=== PATIENT | male | born 1990 | race Caucasian/White ===

== ENCOUNTER 2016-09-05 10:26 | Emergency (ER) ==
[2016-09-05 10:38] VITALS: BP 160/90; TEMP 97.5; BMI 25.0
--- NOTE | 2016-09-05 10:52 | ED.PDOC ---
General ED Provider: Dr. ALEXANDER FRANCISCO Chief Complaint: Rash Stated Complaint: HAS SOME SPOTS ON THE PENIS, WANTS TO GET CHECKED. Time Seen by Physician: 10:50 Mode of Arrival: Walk-In Information Source: Patient Nursing and Triage Documentation Reviewed and Agree: Yes Complaint Exam - STD Male Complaint/Exam Symptoms Are: Still present Timing: Constant Initial Severity: Mild Current Severity: Mild Location: Reports: Penis Aggravating: Reports: None Alleviating: Reports: None Associated Signs and Symptoms: Reports: Penile sores. Denies: Dysuria, Scrotal pain, Scrotal swelling, Testicular pain, Testicular swelling Related Surgical History: Reports: None Genitalia Exam: Present: Penile lesions, Penile vesicles Differential Diagnoses: Herpes Simplex Review of Systems - Review Of Systems Constitutional: Reports: No symptoms Eyes: Reports: No symptoms Ears, Nose, Mouth, Throat: Reports: No symptoms Respiratory: Reports: No symptoms Cardiac: Reports: No symptoms GI: Reports: No symptoms : Reports: No symptoms Musculoskeletal: Reports: No symptoms Skin: Reports: No symptoms Neurological: Reports: No symptoms Endocrine: Reports: No symptoms Hematologic/Lymphatic: Reports: No symptoms All Other Systems: Reviewed and Negative Past Medical History - Past Medical History Previously Healthy: Yes Endocrine: Reports: None Cardiovascular: Reports: None Respiratory: Reports: None Hematological: Reports: None Gastrointestinal: Reports: None Genitourinary: Reports: None Neuro/Psych: Reports: None Musculoskeletal: Reports: None Cancer: Reports: None - Surgical History General Surgical History: Reports: None - Family History Family History: Reports: None - Social History Smoking Status: Never smoker Hx Substance Use: Yes ([facility]) Alcohol Screening: None Physical Exam - Physical Exam Appearance: Well-appearing, No pain distress, Well-nourished Eyes: ENRRIQUE, EOMI, Conjunctiva clear ENT: Ears normal, Nose normal, Oropharynx normal Respiratory: Airway patent, Breath sounds clear, Breath sounds equal, Respirations nonlabored Cardiovascular: RRR, Pulses normal, No rub, No murmur GI/: Soft (2 SPOTS ON THE PENIS, LOOK LIKE HEALING BLISTERS???), Nontender, No masses, Bowel sounds normal, No Organomegaly Musculoskeletal: Normal strength, ROM intact, No edema, No calf tenderness Skin: Warm, Dry, Normal color Neurological: Sensation intact, Motor intact, Reflexes intact, Cranial nerves intact, Alert, Oriented Psychiatric: Affect appropriate, Mood appropriate Critical Care Note - Critical Care Note Total Time (mins): 0 Course - Course Vital Signs: Temp Pulse Resp BP Pulse Ox 09/05/16 10:27 97.5 F L 53 L 16 160/90 H 98 Departure - Departure Time of Disposition: 10:54 Disposition: HOME SELF-CARE 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
== END 2016-09-05 11:01 | disposition home or self-care (01) ==
LOC: ED 10:26
DX: A60.01 Herpesviral infection of penis (principal)
CPT/HCPCS: 99282

== ENCOUNTER 2016-09-23 15:22 | Outpatient (CLI) ==
[2016-09-23 15:41] LABS: BILIRUBIN,URINE Negative (NEGATIVE); KETONES,URINE Negative (NEGATIVE); LEUKOCYTE ESTERASE ,URINE Negative (NEGATIVE); NITRITE,URINE Negative (NEGATIVE); PH,URINE 6.5 (5-9); PROTEIN,URINE Negative (NEGATIVE); URINE, BLOOD Trace-intact (NEGATIVE)
[2016-09-23 15:48] LABS: ADD URINE MICROSCOPIC YES
[2016-09-23 16:13] LABS: HIV INTERNAL QC INTERNAL QC VALID; HIV-1 p24 ANTIGEN SCREEN NEGATIVE (NEGATIVE); HIV-1/2 ANTIBODY SCREEN NEGATIVE (NEGATIVE)
[2016-09-27 07:54] LABS: HIV ANTIBODIES QUALITATIVE NONREACTIVE (Nonreactive); RAPID PLASMA REAGIN NONREACTIVE
== END 2016-09-23 15:23 | disposition home or self-care (01) ==
LOC: LAB 15:22
PROVIDERS: ATTEND Nurse Practitioner Family
DX: Z72.51 High risk heterosexual behavior (principal)
CPT/HCPCS: 36415; 80074; 81001; 86592; 86701; 87800